=== PATIENT | female | born 1950 | race Asian ===

== ENCOUNTER 2021-07-20 07:11 | Outpatient (CLI) | payer MEDICARE, MEDICAID ==
[2021-07-20 08:36] LABS: ALANINE AMINOTRANSFERASE 27 U/L (12-78); ALBUMIN 4.3 g/dL (3.4-5.0); ANION GAP 5 mmol/L (5-15); CALCIUM 12.2 mg/dL (8.5-10.1); CHLORIDE 106 mmol/L (98-107); CREATININE 0.57 mg/dL (0.55-1.02)
[2021-07-20 08:37] LABS: ALKALINE PHOSPHATASE 125 U/L (45-117); BILIRUBIN,TOTAL 0.5 mg/dL (0.2-1.0); TOTAL PROTEIN 8.7 g/dL (6.4-8.2)
[2021-07-20] MEDS ORDERED: AMLO-211 PO (08:57)
[2021-07-20] MEDS ORDERED: IBUP-1623 PO (08:57)
[2021-07-20] MEDS ORDERED: INSU100V8 SQ (08:57)
[2021-07-20] MEDS ORDERED: ATOR20TA37 PO (08:57)
[2021-07-20] MEDS ORDERED: NITR0.4T28 SL (08:57)
[2021-07-20] MEDS ORDERED: GLIM4TAB8 PO (08:57)
[2021-07-20] MEDS ORDERED: EMPA1TAB PO (08:57)
[2021-07-20] MEDS ORDERED: LOSA100T14 PO (08:57)
[2021-07-20] MEDS ORDERED: METF10007 PO (08:57)
[2021-07-20] MEDS ORDERED: ESCI20TA8 PO (08:57)
== END 2021-07-20 23:59 | disposition home or self-care (01) ==
LOC: STAR 07:11
PROVIDERS: ATTEND Surgery
DX: Z01.812 Encounter for preprocedural laboratory examination (principal); Z20.822 Contact with and (suspected) exposure to COVID-19; E21.0 Primary hyperparathyroidism
CPT/HCPCS: 36415; 80053; 87635; 93005

== ENCOUNTER 2021-07-26 06:33 | Day surgery (SDC) | payer MEDICARE, MEDICAID ==
[~2021-07-26] VITALS: Ht 154.9 cm; Wt 65.4 kg
[~2021-07-26 06:33] MED LIST: AMLO-211 PO; ATOR20TA37 PO; EMPA1TAB PO; ESCI20TA8 PO; GLIM4TAB8 PO; IBUP-1623 PO; INSU100V8 SQ; LOSA100T14 PO; METF10007 PO; NITR0.4T28 SL
[2021-07-26 06:55] VITALS: BP 151/81
[2021-07-26] MEDS ORDERED: LIDOCAINE-MPF 1%, 2ML INFIL ONE (07:00)
[2021-07-26] MEDS ORDERED: CHLORHEXIDINE 15 ML UDC PO ONE (07:00)
[2021-07-26] MEDS ORDERED: LACTATED RINGERS 1,000 ML IV SCH (07:00)
[2021-07-26] MEDS ORDERED: MIDAZOLAM 1 MG/ML, 2ML ONE (07:11)
[2021-07-26] MEDS ORDERED: FENTANYL PF 100 MCG/2ML ONE ×2 (07:14→09:14)
[2021-07-26] MEDS ORDERED: hydrALAzine 20 MG/ML, 1ML IV PRN (07:30)
[2021-07-26] MEDS ORDERED: MEPERIDINE/PF 25MG/0.5ML IVPush PRN (07:30)
[2021-07-26] MEDS ORDERED: LABETALOL 5MG/ML, 20ML IV PRN (07:30)
[2021-07-26] MEDS ORDERED: ACETAMINOPHEN 325 MG TABLET PO PRN (07:30)
[2021-07-26] MEDS ORDERED: HYDROmorphone 1 MG/ML, 1ML INJ IVPush PRN (07:30)
[2021-07-26] MEDS ORDERED: DIAZEPAM 5 MG/ML, 2ML IVPush PRN (07:30)
[2021-07-26] MEDS ORDERED: OXYcodone 5 MG/5 ML ORAL.SOL UDC PO PRN (07:30)
[2021-07-26] MEDS ORDERED: ONDANSETRON 2MG/ML, 2ML IVPush PRN (07:30)
[2021-07-26] MEDS ORDERED: FENTANYL PF 100 MCG/2ML IV PRN (07:30)
[2021-07-26 08:53] LABS: 5MIN %DROP IOPTH 54 %; IOPTH BASELINE 199 pg/mL
[2021-07-26 08:54] LABS: 10MIN %DROP IOPTH 74 %
[2021-07-26] MEDS ORDERED: OXYcodone 5 MG/5 ML ORAL.SOL UDC ONE (09:14)
[2021-07-26] MEDS ORDERED: ACETAMINOPHEN 650 MG/20.3 ML UDC ONE (09:15)
[2021-07-26] MEDS ORDERED: HYDR-2214 PO (09:18)
== END 2021-07-26 11:55 | disposition home or self-care (01) ==
LOC: OUT 06:33
PROVIDERS: ATTEND Surgery
DX: E21.0 Primary hyperparathyroidism (principal); I10 Essential (primary) hypertension; E78.5 Hyperlipidemia, unspecified; E11.9 Type 2 diabetes mellitus without complications; Z79.899 Other long term (current) drug therapy; Z80.1 Family history of malignant neoplasm of trachea, bronchus and lung; Z83.3 Family history of diabetes mellitus
CPT/HCPCS: 60500; 82962; 83970; 88305; 88331; C1760; J2250; J3010; J7120